=== PATIENT | female | born 1995 | race African-American/Black ===

== ENCOUNTER 2017-05-08 01:48 | Emergency (ER) | payer OTHER ==
[~2017-05-08] VITALS: Ht 172.7 cm; Wt 77.1 kg
[2017-05-08 01:50] VITALS: BP 112/74
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
[2017-05-08] MEDS ORDERED: VITAFOL ULTRA1 EACH PO (02:39)
== END 2017-05-08 02:42 ==
LOC: ERH 01:48
DX: O99.89 Other specified diseases and conditions complicating pregnancy, childbirth and the puerperium (principal); R10.32 Left lower quadrant pain; Z3A.21 21 weeks gestation of pregnancy; V89.2XXA Person injured in unspecified motor-vehicle accident, traffic, initial encounter; Y92.9 Unspecified place or not applicable
CPT/HCPCS: 81001